=== PATIENT | male | born 1950 | race Caucasian/White ===

== ENCOUNTER → 2020-02-09 12:09 | Outpatient (CLI) | payer OTHER, SELFPAY ==
--- NOTE | ~2020-02-09 | CT_ITS ---
EXAMINATION: CT sinus wo con DATE: 02/09/2020 12:25 INDICATION: Chronic sinusitis. Deviated septum. TECHNIQUE: Computed tomography (CT) of the paranasal sinuses was performed without contrast. Iterativ e reconstruction technique was employed. Exam dose: 278.24 mGy-cm total exam DLP. COMPARISON: None FINDINGS: There is rightward deviation of the septum anteriorly and leftward deviation at mid depth o f the septum. Nasal turbinates are moderately prominent symmetric in size. Minimal interlamellar cell of the left m iddle nasal turbinate The ostiomeatal units are patent bilaterally. The paranasal sinuses are normally developed and aerated. There is minimal mucoperiosteal thickening along the lower lateral wall of the right frontal sinus extending into the anterior ethmoid area. The mastoid air cells are normally developed and aerated. Middle and inner ear apparatus are unremark able. IMPRESSION: Septal deviation Minimal interlamellar cell of left middle nasal turbinate Minimal soft tissue thickening along the inferolateral right frontal sinus extending into the right a nterior ethmoid region; otherwise unremarkable paranasal sinuses, ostiomeatal units and mastoid air c ells Reviewed, dictated and finalized at [facility]. Reviewed, dictated and finalized at [facility]. IMPRESSION: Septal deviation Minimal interlamellar cell of left middle nasal turbinate Minimal soft tissue thickening along the inferolateral right frontal sinus exte nding into the right anterior ethmoid region; otherwise unremarkable paranasal sinuses, ostiomeatal units and mastoid air cells
== END ==
PROVIDERS: PCP Family Medicine
DX: J32.9 Chronic sinusitis, unspecified (principal); J34.2 Deviated nasal septum; J34.3 Hypertrophy of nasal turbinates
CPT/HCPCS: 70486